=== PATIENT | female | born 1995 | race Caucasian/White ===

== ENCOUNTER 2017-01-02 15:24 | Emergency (ER) | payer SELFPAY ==
[~2017-01-02] VITALS: Ht 162.6 cm; Wt 120.0 kg
[2017-01-02 15:30] VITALS: BP_SYST 144; BP_SYST 164; BP_DIAS 74; BP_DIAS 80; PULSE 65; PULSE 70; RESP 16; TEMP 98.2; TEMP 98.3; O2SAT 100; O2SAT 98
[2017-01-02] MEDS ORDERED: SODIUM CHLOR 0.9% 1000 ML INJ 1,000 ML IV SCH (17:10)
--- NOTE | 2017-01-02 17:11 | PD ---
HPI Chief Complaint: Major Account Manager Problem/Complaint Time Seen by Provider: 17:11 Travel History International Travel<30 days: No Contact w/Intl Traveler<30days: No Traveled to known affect area: No History of Present Illness HPI 21-year-old female presents to the emergency department for evaluation of light vaginal bleeding, described as a brown spotting today. Patient states she was on Depo shot and did not have a menstrual cycle for the last 5 years. She has been off of the shot a year now and has still not had a cycle and she believed she may be . Patient states that she took a test at home and they're negative. Denies any abdominal pain but states she has had intermittent cramping, similar to menstrual cycle. He also reports some vaginal discharge associated with the spotting. States that she is in a monogamous relationship she but does not utilize condom prophylaxis. Denies any fever or chills. She has no other symptoms to report. PFSH Past Medical History Asthma: Yes Reproductive: Yes (heavy periods, previously on Depo) Respiratory: Yes (ASTHMA) ?: Unknown LMP: long time ago Social History Alcohol Use: No Tobacco Use: Yes (1/2 pack) Substance Use: No Allergies-Medications (Allergen,Severity, Reaction): Uncoded Allergies: cillins (Allergy, Severe, hives, 01/02/17) Reported Meds & Prescriptions Reported Meds & Active Scripts Active No Active Prescriptions or Reported Medications Review of Systems Except as stated in HPI: all other systems reviewed are Neg Physical Exam Narrative GENERAL: Well-nourished female patient in no acute distress SKIN: Focused skin assessment warm/dry. HEAD: Atraumatic. Normocephalic. EYES: Pupils equal and round. No scleral icterus. No injection or drainage. ENT: No nasal bleeding or discharge. Mucous membranes pink and moist. NECK: Trachea midline. No JVD. CARDIOVASCULAR: Regular rate and rhythm. No murmur appreciated. RESPIRATORY: No accessory muscle use. Clear to auscultation. Breath sounds equal bilaterally. GASTROINTESTINAL: Abdomen soft, non-tender, nondistended. Hepatic and splenic margins not palpable. GENITOURINARY: Normal external genitalia without lesions or erythema. Vaginal vault with a brown yellow discharge. Cervical os was closed without drainage. No cervical motion tenderness. Uterus nontender and nonenlarged. Bilateral adnexa nontender without masses. MUSCULOSKELETAL: No obvious deformities. No clubbing. No cyanosis. No edema. NEUROLOGICAL: Awake and alert. No obvious cranial nerve deficits. Motor grossly within normal limits. Normal speech. PSYCHIATRIC: Appropriate mood and affect; insight and judgment normal. Data Data Last Documented VS Vital Signs Date Time Temp Pulse Resp B/P Pulse Ox O2 Delivery O2 Flow Rate FiO2 01/02/17 15:30 98.3 65 16 144/80 100 Room Air Orders Beta Hcg (Quant/Titer) (01/02/17 17:10) Urinalysis - C+S If Indicated (01/02/17 17:10) Iv Access Insert/Monitor (01/02/17 17:10) Ecg Monitoring (01/02/17 17:10) Oximetry (01/02/17 17:10) Sodium Chlor 0.9% 1000 Ml Inj (Ns 1000 M (01/02/17 17:10) Sodium Chloride 0.9% Flush (Ns Flush) (01/02/17 17:15) Ed Urine Pregnancytest Poc (01/02/17 17:10) Wet Prep Profile (01/02/17 17:10) Gc And Chlamydia Pcr (01/02/17 17:10) Al-Mag Hy-Si 40-40-4 Mg/Ml Liq (Mag-Al P (01/02/17 18:00) Lidocaine 2% Viscous (Xylocaine 2% Visco (01/02/17 18:00) Acetaminophen (Tylenol) (01/02/17 18:30) Labs Laboratory Tests Test 01/02/17 01/02/17 17:22 17:50 Urine Color YELLOW Urine Turbidity CLEAR Urine pH 6.5 Urine Specific [place] 1.028 Urine Protein TRACE mg/dL Urine Glucose (UA) NEG mg/dL Urine Ketones NEG mg/dL Urine Occult Blood MOD Urine Nitrite NEG Urine Bilirubin NEG Urine Urobilinogen LESS THAN 2.0 MG/DL Urine Leukocyte Esterase NEG Urine RBC 5 /hpf Urine WBC 1 /hpf Urine Squamous Epithelial 2 /hpf Cells Urine Bacteria RARE /hpf Urine Mucus FEW /lpf Microscopic Urinalysis Comment CULT NOT INDICATED Human Chorionic Gonadotropin, LESS THAN 1 Quant MIU/ML Chlamydia trachomatis DNA NOT DETECTED (PCR) Neisseria gonorrhoeae DNA NOT DETECTED (PCR) Clue Cells (Wet Prep) NONE SEEN Vaginal Trichomonas (Wet Prep) NONE SEEN Vaginal Yeast (Wet Prep) NONE SEEN MDM Medical Decision Making Medical Screen Exam Complete: Yes Emergency Medical Condition: Yes Medical Record Reviewed: Yes Differential Diagnosis Menstrual cycle versus STD versus BV versus candidiasis Narrative Course 21-year-old female presents to emergency department for evaluation. Patient appears without distress. She does have brown yellow discharge in her vaginal vault. No CMT. Laboratory Tests Test 01/02/17 01/02/17 17:22 17:50 Urine Color YELLOW Urine Turbidity CLEAR Urine pH 6.5 Urine Specific [place] 1.028 Urine Protein TRACE mg/dL Urine Glucose (UA) NEG mg/dL Urine Ketones NEG mg/dL Urine Occult Blood MOD Urine Nitrite NEG Urine Bilirubin NEG Urine Urobilinogen LESS THAN 2.0 MG/DL Urine Leukocyte Esterase NEG Urine RBC 5 /hpf Urine WBC 1 /hpf Urine Squamous Epithelial 2 /hpf Cells Urine Bacteria RARE /hpf Urine Mucus FEW /lpf Microscopic Urinalysis Comment CULT NOT INDICATED Human Chorionic Gonadotropin, LESS THAN 1 Quant MIU/ML Chlamydia trachomatis DNA NOT DETECTED (PCR) Neisseria gonorrhoeae DNA NOT DETECTED (PCR) Clue Cells (Wet Prep) NONE SEEN Vaginal Trichomonas (Wet Prep) NONE SEEN Vaginal Yeast (Wet Prep) NONE SEEN Is likely her menstrual cycle beginning. Labs are discussed with the patient. She is encouraged to seek gynecology evaluation. She agrees to return immediately with any acute worsening symptoms. Diagnosis Primary Impression: Vaginal bleeding Referrals: Senior Military Analyst Primary Care Physician Patient Instructions: General Instructions, Menstruation (ED) Additional Instructions: Follow up your caustic mixer Return to ED with acute worsening of symptoms Med/Other Pt SpecificInfo: No Change to Meds Scripts No Active Prescriptions or Reported Meds Disposition: 01 DISCHARGE HOME Condition: Stable Mary Lou Vidal Jan 02, 2017 17:11
[2017-01-02] MEDS ORDERED: SODIUM CHLORIDE 0.9% FLUSH 10 ML FLUSH IV FLUSH PRN (17:15)
[2017-01-02] MEDS ORDERED: LIDOCAINE VISCOUS 2% SOLN 15 ML UDC PO ONE (18:00)
[2017-01-02] MEDS ORDERED: ALUMINUM/MAGNESIUM/SIMETH 30 ML CUP PO ONE (18:00)
[2017-01-02 18:07] LABS: BACTERIA, URINE RARE /hpf; BLOOD, URINE MOD (NEG); COMMENT (UR) CULT NOT INDICATED; CULTURE IF INDICATED CULT NOT INDICATED; GLUCOSE,URINE NEG (NEG); KETONE, URINE NEG (NEG); MUCUS URINE FEW /lpf (OCC); NITRITE,URINE NEG (NEG); PH, URINE 6.5 (5.0-8.5); SQUAMOUS EPITHELIAL CELL URINE 2 /hpf (0-5); URINE COLOR YELLOW (YELLW/STRAW)
[2017-01-02 18:23] LABS: BETA HCG QUANT LESS THAN 1 MIU/ML (0-5)
[2017-01-02] MEDS ORDERED: ACETAMINOPHEN 325 MG TAB PO ONE (18:30)
[2017-01-02 20:08] LABS: CHLAMYDIA PCR NOT DETECTED (NOT DETECT); NEISSERIA PCR NOT DETECTED (NOT DETECT)
== END 2017-01-02 20:12 | disposition home or self-care (01) ==
LOC: NEPD 15:24
DX: N93.9 Abnormal uterine and vaginal bleeding, unspecified (principal); N89.8 Other specified noninflammatory disorders of vagina; J45.909 Unspecified asthma, uncomplicated; F17.200 Nicotine dependence, unspecified, uncomplicated
CPT/HCPCS: 81001; 84702; 84703; 87210; 87491; 87591; 96360; 99284; J7030

== ENCOUNTER 2017-08-09 18:33 | Emergency (ER) | payer SELFPAY ==
[~2017-08-09] VITALS: Ht 160 cm; Wt 120.6 kg
[2017-08-09 18:35] VITALS: BP 110/56; PULSE 72; RESP 17; TEMP 98.7; O2SAT 100
[2017-08-09] MEDS ORDERED: VENTAER INH ×2 (18:44→19:32)
[2017-08-09] MEDS ORDERED: ALBU0.63 NEB (19:32)
--- NOTE | 2017-08-09 19:32 | PD ---
HPI Chief Complaint: Medication Refill Request Time Seen by Provider: 19:25 Travel History International Travel<30 days: No Contact w/Intl Traveler<30days: No Traveled to known affect area: No History of Present Illness HPI 21-year-old female with history of asthma here requesting a prescription for albuterol. She states that she recently moved here from [place] 2 months ago and has no local primary care physician. She ran out of her albuterol inhaler. She also has an albuterol nebulizer at home and states that she uses earlier today. Currently she denies any shortness of breath. No fevers or recent illness. She states she is here just for a prescription. PFSH Past Medical History Asthma: Yes Reproductive: Yes (heavy periods, previously on Depo) Respiratory: Yes (ASTHMA) ?: Not LMP: DEPO-SHOT Social History Alcohol Use: No Tobacco Use: Yes (1/2 pack) Substance Use: No Allergies-Medications (Allergen,Severity, Reaction): Uncoded Allergies: cillins (Allergy, Severe, hives., 08/09/17) Reported Meds & Prescriptions Reported Meds & Active Scripts Active Reported Ventolin Hfa 18 GM Inh (Albuterol Sulfate) 90 Mcg/Act Aer 2 Puff INH Q4-6H PRN Review of Systems Except as stated in HPI: all other systems reviewed are Neg Physical Exam Narrative GENERAL: Well-developed, well-nourished, comfortable, no apparent distress. SKIN: Focused skin assessment warm/dry. HEAD: Atraumatic. Normocephalic. EYES: Pupils equal and round. No scleral icterus. No injection or drainage. ENT: No nasal bleeding or discharge. Mucous membranes pink and moist. CARDIOVASCULAR: Regular rate and rhythm. No murmur appreciated. RESPIRATORY: No accessory muscle use. Clear to auscultation. Breath sounds equal bilaterally. GASTROINTESTINAL: Abdomen soft, non-tender, nondistended. Hepatic and splenic margins not palpable. MUSCULOSKELETAL: No obvious deformities. No clubbing. No cyanosis. No edema. NEUROLOGICAL: Awake and alert. No obvious cranial nerve deficits. Motor grossly within normal limits. Normal speech. PSYCHIATRIC: Appropriate mood and affect; insight and judgment normal. Data Data Last Documented VS Vital Signs Date Time Temp Pulse Resp B/P (MAP) Pulse Ox O2 Delivery O2 Flow Rate FiO2 08/09/17 18:35 98.7 72 17 110/56 (74) 100 MDM Medical Decision Making Medical Screen Exam Complete: Yes Emergency Medical Condition: Yes Differential Diagnosis Asthma, medication refill Narrative Course Vital signs show heart rate 72, blood pressure 110/56, pulse ox 100% on room air , oral temp of 98.7F. This is a 21-year-old female with history of asthma who is here requesting a prescription for albuterol as she recently moved here from [place] and has no local primary care physician. She is overall very well-appearing, comfortable, no respiratory distress. Her lung sounds are clear and equal bilaterally. I will give her prescription for Ventolin and albuterol nebulizer treatments. I'll give her the name of the peripatologist conduit helper with him to try and make component with this week. She was advised on when to return to the emergency department. She verbalizes understanding and agreement with plan. Diagnosis Primary Impression: Medication refill Additional Impression: Asthma Qualified Codes: J45.909 - Unspecified asthma, uncomplicated Referrals: Aleyda Perez MD 3 days Real Estate Operations Manager Primary Care Physician 3 days Additional Instructions: Follow-up with a primary care physician this week. Follow-up with peripatologist Dr. Perez or a peripatologist of your choice this week. Return to the emergency department for worsening symptoms or any other concerns. Scripts Albuterol Neb (Albuterol Neb) 0.63 Mg/3 Ml Neb 0.63 MG NEB Q6HR NEB Y for SHORTNESS OF BREATH, #25 NEBULE 0 Refills Prov: Hernan Wilhelm MD 08/09/17 Albuterol 18 GM Inh (Ventolin Hfa 18 GM Inh) 90 Mcg/Act Aer 2 PUFF INH Q4-6H Y for SHORTNESS OF BREATH, #1 INHALER 2 Refills Prov: Hernan Wilhelm MD 08/09/17 Disposition: 01 DISCHARGE HOME Condition: Stable Hernan Wilhelm MD Aug 09, 2017 19:32
== END 2017-08-09 19:51 | disposition home or self-care (01) ==
LOC: PHEFT 18:33
DX: Z76.0 Encounter for issue of repeat prescription (principal); J45.909 Unspecified asthma, uncomplicated; F17.210 Nicotine dependence, cigarettes, uncomplicated; Z88.0 Allergy status to penicillin; Z79.52 Long term (current) use of systemic steroids
CPT/HCPCS: 99281